=== PATIENT | male | born 1950 | race African-American/Black ===

== ENCOUNTER 2018-02-22 22:35 | Emergency (ER) | payer MEDICARE ==
[2018-02-23 01:14] LABS: HEMATOCRIT 38.5 % (37.9-51.0); HEMOGLOBIN 13.1 g/dL (13.5-17.0); MEAN CORPUSCULAR HEMOGLOBIN 30.7 pg (27.0-33.4); MEAN CORPUSCULAR VOLUME 90 fl (80-97); PLATELET COUNT 153 10^3/uL (150-450); RED BLOOD COUNT 4.26 10^6/uL (4.35-5.55); RED CELL DISTRIBUTION WIDTH 13.2 % (11.5-14.0); WHITE BLOOD COUNT 3.3 10^3/uL (4.0-10.5)
[2018-02-23 01:32] LABS: ANION GAP 5 (5-19); BLOOD UREA NITROGEN 16 mg/dL (7-20); CALCIUM 9.2 mg/dL (8.4-10.2); CARBON DIOXIDE 29 mmol/L (22-30); CHLORIDE 104 mmol/L (98-107); GLUCOSE 214 mg/dL (75-110); POTASSIUM 4.1 mmol/L (3.6-5.0); SODIUM 138.3 mmol/L (137-145)
--- NOTE | 2018-02-23 02:20 | ER Document Report ---
ED General - General Chief Complaint: Blood Pressure Problem Stated Complaint: BLOOD PRESSURE ISSUE Time Seen by Provider: 02/23/18 00:40 Notes: Patient is a 68-year-old male with a past medical history of hyperlipidemia and diabetes without insulin dependence who presents with intermittent lightheadedness and concerns about his blood pressure. The patient states that he has intermittently been feeling lightheaded throat the day today, checked his blood pressure and it read to be in the 200s systolic at home prompting him come to the emergency department. He does not normally have hypertension. He denies any headache, chest pain, focal weakness or numbness, confusion, fever or constitutional symptoms. He has not contacted his primary care doctor regarding today's concerns. He is uncertain of whether or not he has had similar symptoms in the past. TRAVEL OUTSIDE OF THE [place] IN LAST 30 DAYS: No - Related Data Allergies/Adverse Reactions: No Known Allergies Allergy (Unverified 05/20/12 23:10) Past Medical History - General Information source: Patient - Social History Smoking Status: Never Smoker Frequency of alcohol use: None Drug Abuse: None Lives with: Spouse/Significant other Family History: Reviewed & Not Pertinent Patient has suicidal ideation: No Patient has homicidal ideation: No - Past Medical History Cardiac Medical History: Reports: Hx Hypercholesterolemia Endocrine Medical History: Reports: Hx Diabetes Mellitus Type 2 Renal/ Medical History: Denies: Hx Peritoneal Dialysis Traumatic Medical History: Denies: Hx Fractures - Immunizations Hx Diphtheria, Pertussis, Tetanus Vaccination: No Review of Systems - Review of Systems Notes: Constitutional: Negative for fever. HENT: Negative for sore throat. Eyes: Negative for visual changes. Cardiovascular: Negative for chest pain. Respiratory: Negative for shortness of breath. Gastrointestinal: Negative for abdominal pain, vomiting or diarrhea. Genitourinary: Negative for dysuria. Musculoskeletal: Negative for back pain. Skin: Negative for rash. Neurological: Negative for headaches, weakness or numbness. 10 point ROS negative except as marked above and in HPI. Physical Exam - Vital signs Vitals: Temp Pulse Resp BP Pulse Ox 98.1 F 70 18 133/69 H 97 02/22/18 22:49 02/22/18 22:49 02/22/18 22:49 02/22/18 22:49 02/22/18 22:49 Interpretation: Normal Notes: PHYSICAL EXAMINATION: GENERAL: Well-appearing, well-nourished and in no acute distress. HEAD: Atraumatic, normocephalic. EYES: Pupils equal round and reactive to light, extraocular movements intact, sclera anicteric, conjunctiva are normal. ENT: nares patent, oropharynx clear without exudates. Moist mucous membranes. NECK: Normal range of motion, supple without lymphadenopathy LUNGS: Breath sounds clear to auscultation bilaterally and equal. No wheezes rales or rhonchi. HEART: Regular rate and rhythm without murmurs ABDOMEN: Soft, nontender, normoactive bowel sounds. No guarding, no rebound. No masses appreciated. EXTREMITIES: Normal range of motion, no pitting or edema. No cyanosis. NEUROLOGICAL: Face symmetric. Tongue protrudes midline. Extraocular motions intact. Pupils are 2 mm and equally reactive. Normal speech, normal gait. 5 out of 5 strength in both the distal and proximal upper and lower extremities bilaterally. Sensation is grossly intact throughout. Finger to nose testing normal. Pronator drift normal. PSYCH: Normal mood, normal affect. SKIN: Warm, Dry, normal turgor, no rashes or lesions noted. Course - Re-evaluation Re-evalutation: 02/23/18 04:43 Patient presents with complaints of intermittent lightheadedness, not present now. He has no focal neurologic deficits on examination. Has no complaints at all the time of my evaluation his main concern is his blood pressure reading at home which appears to have been in error given his normal blood pressure readings here in the emergency department. Laboratories unremarkable. EKG without any acute findings. I do not see indication for radiographic imaging. Clinical history and exam are not consistent with ACS, acute stroke, acute pulmonary embolus, occult infectious process, or any other life any other etiology. Have explained to the patient that the exact etiology of symptoms is uncertain diagnostic uncertainty does persist. At this time will discharge with return precautions and follow-up recommendations. Verbal discharge instructions given a the bedside and opportunity for questions given. Medication warnings reviewed. Patient is in agreement with this plan and has verbalized understanding of return precautions and the need for primary care follow-up in the next 24-72 hours. - Vital Signs Vital signs: Temp Pulse Resp BP Pulse Ox 97.6 F 59 L 16 152/78 H 100 02/23/18 02:54 02/23/18 02:54 02/23/18 02:54 02/23/18 02:54 02/23/18 02:54 - Laboratory Result Diagrams: 02/23/18 00:55 02/23/18 00:55 Laboratory results interpreted by me: 02/23/18 02/23/18 00:55 00:55 WBC 3.3 L RBC 4.26 L Hgb 13.1 L Glucose 214 H - EKG Interpretation by Me Additional EKG results interpreted by me: 02/23/18 04:44 Sinus rhythm. Rate 68. No ST elevations or depressions. QTC is 426. Discharge - Discharge Clinical Impression: Blood pressure check, Dizziness Condition: Good Disposition: HOME, SELF-CARE Additional Instructions: You were seen today for lightheadedness/dizziness. The exact cause of your symptoms is unclear but your workup here is reassuring without any concerning findings. Please follow closely with your primary care physician in the next 1- 3 days. Return if you pass out, have additional episodes of lightheadedness, develop weakness/numbness, have persistent vomiting, chest pain, shortness of breath or any other symptoms that are concerning to you
[2018-02-23 02:58] VITALS: BP 152/78
--- NOTE | 2018-02-23 12:38 | EKG REPORT ---
SEVERITY:- BORDERLINE ECG - SINUS RHYTHM LVH BY VOLTAGE : Confirmed by: Prachi Wellington MD 23-Feb-2018 12:37:39
== END 2018-02-23 02:57 | disposition home or self-care (01) ==
LOC: ER 22:35
DX: R03.0 Elevated blood-pressure reading, without diagnosis of hypertension (principal); R42 Dizziness and giddiness; E78.00 Pure hypercholesterolemia, unspecified; E11.9 Type 2 diabetes mellitus without complications
CPT/HCPCS: 36415; 80048; 84484; 85027; 93005; 93010; 99284

== ENCOUNTER 2018-09-15 10:32 | Emergency (ER) | payer MEDICARE ==
--- NOTE | 2018-09-15 11:11 | ER Document Report ---
ED Medical Screen (RME) - General Chief Complaint: Low Blood Sugar Stated Complaint: BLOOD SUGAR ISSUES Time Seen by Provider: 09/15/18 10:53 Mode of Arrival: Ambulatory Information source: Patient Notes: Patient is a 68-year-old male who presents emergency department with multiple complaints. Patient complains that this morning he woke up and felt shaky and drowsy. He checked his blood sugar and found it to be 34. He states when he rechecked it it was 74 and 72. Patient reports he drank some juice and ate a sandwich. On arrival patient's blood glucose is 286. He also complains of right lumbar back pain ongoing for the last 3 days. 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 Patient denies any urinary symptoms with this. He also reports left ear pain. He states he had a dental extraction done approximately 6 weeks ago and has had continued pain since then. Patient states he was seen by his primary care provider who prescribed him eardrops, he states he took all of them and the pain remains. Exam: Patient alert, oriented and answering all questions appropriately. Lung sounds are clear and equal bilaterally. I have greeted and performed a rapid initial assessment of this patient. A comprehensive ED assessment and evaluation of the patient, analysis of test results and completion of the medical decision making process will be conducted by additional ED providers. Dictation of this chart was performed using voice recognition software; therefore, there may be some unintended grammatical errors. TRAVEL OUTSIDE OF THE [place] IN LAST 30 DAYS: No - Related Data Allergies/Adverse Reactions: No Known Allergies Allergy (Unverified 05/20/12 23:10) Past Medical History - Past Medical History Cardiac Medical History: Reports: Hx Hypercholesterolemia Endocrine Medical History: Reports: Hx Diabetes Mellitus Type 2 Renal/ Medical History: Denies: Hx Peritoneal Dialysis Traumatic Medical History: Denies: Hx Fractures - Immunizations Hx Diphtheria, Pertussis, Tetanus Vaccination: No Physical Exam - Vital signs Vitals: Temp Pulse Resp BP Pulse Ox 98.0 F 93 16 157/77 H 97 09/15/18 10:44 09/15/18 10:44 09/15/18 10:44 09/15/18 10:44 09/15/18 10:44 Course - Vital Signs Vital signs: Temp Pulse Resp BP Pulse Ox 98.0 F 93 16 157/77 H 97 09/15/18 10:44 09/15/18 10:44 09/15/18 10:44 09/15/18 10:44 09/15/18 10:44 - Laboratory Laboratory results interpreted by me: 09/15/18 10:55 POC Glucose 286 H
[2018-09-15 12:01] LABS: ABSOLUTE LYMPHOCYTES (AUTO) 0.8 10^3/uL (0.5-4.7); ABSOLUTE MONOCYTES (AUTO) 0.2 10^3/uL (0.1-1.4); BASOPHILS % (AUTO) 0.3 % (0-2); EOSINOPHILS % (AUTO) 1.1 % (0-6); HEMATOCRIT 37.9 % (37.9-51.0); HEMOGLOBIN 12.9 g/dL (13.5-17.0); LYMPHOCYTES % (AUTO) 27.2 % (13-45); MEAN CORPUSCULAR HEMOGLOBIN 31.1 pg (27.0-33.4); MEAN CORPUSCULAR VOLUME 92 fl (80-97); MONOCYTES % (AUTO) 6.5 % (3-13); PLATELET COUNT 139 10^3/uL (150-450); RED BLOOD COUNT 4.14 10^6/uL (4.35-5.55); RED CELL DISTRIBUTION WIDTH 13.9 % (11.5-14.0); SEGMENTED NEUTROPHILS % (AUTO) 64.9 % (42-78); TOTAL CELLS COUNTED % (AUTO) 100 %; WHITE BLOOD COUNT 3.1 10^3/uL (4.0-10.5)
--- NOTE | 2018-09-15 12:04 | ER Document Report ---
ED General - General Chief Complaint: Low Blood Sugar Stated Complaint: BLOOD SUGAR ISSUES Time Seen by Provider: 09/15/18 10:53 Mode of Arrival: Ambulatory Notes: Patient is a 68-year-old male with multiple medical complaints. Patient states that 3 days he has had some nontraumatic right lower back pain without any aggravating or relieving factors other than worsening with movement. He denies any trauma, radiation down the leg, fevers, incontinence, or dysuria. History of similar presentation in the past with resolution on its own. No abdominal pain, cough, vomiting present. Patient also states that this morning he felt a little "shaky" and checked his blood sugar being 34. He states he rechecked it and was 74. Patient takes the medications as listed including an increase in his metformin 1 month ago from 500 twice a day to 1000 twice a day. Patient denies any chest pain, shortness of breath, vomiting, or fevers. Patient states that he often misses meals but did eat dinner last night and breakfast this morning. He does not take insulin. Patient's third and final complaint is that he had some fullness to his left ear that he had for 1 month. Patient states this was after dental extraction. Patient states he saw his primary care physician around 2 weeks ago and was told that he possibly had a left ear effusion and infection. He was provided eardrops which he just completed. Patient states that the ear fullness is improved. TRAVEL OUTSIDE OF THE [place] IN LAST 30 DAYS: No - Related Data Allergies/Adverse Reactions: No Known Allergies Allergy (Unverified 05/20/12 23:10) Past Medical History - General Information source: Patient - Social History Smoking Status: Never Smoker Frequency of alcohol use: None Drug Abuse: None Family History: Reviewed & Not Pertinent Patient has suicidal ideation: No Patient has homicidal ideation: No - Past Medical History Cardiac Medical History: Reports: Hx Hypercholesterolemia, Hx Hypertension Endocrine Medical History: Reports: Hx Diabetes Mellitus Type 2 Renal/ Medical History: Denies: Hx Peritoneal Dialysis Traumatic Medical History: Denies: Hx Fractures - Immunizations Hx Diphtheria, Pertussis, Tetanus Vaccination: No Review of Systems - Review of Systems Constitutional: denies: Fever EENT: denies: Eye discharge, Nose discharge Cardiovascular: denies: Chest pain, Palpitations Respiratory: denies: Short of breath Gastrointestinal: denies: Vomiting Genitourinary: denies: Dysuria Musculoskeletal: denies: Leg swelling Skin: Other - no hives. denies: Rash Neurological/Psychological: Other - no slurred speech -: Yes All other systems reviewed and negative Physical Exam - Vital signs Vitals: Temp Pulse Resp BP Pulse Ox 98.0 F 93 16 157/77 H 97 09/15/18 10:44 09/15/18 10:44 09/15/18 10:44 09/15/18 10:44 09/15/18 10:44 Notes: Reviewed vital signs and nursing note as charted by RN. CONSTITUTIONAL: Alert and oriented and responds appropriately to questions. Wel l-appearing; well-nourished HEAD: Normocephalic; atraumatic EYES: PERRL; full extraocular range of motion ENT: Normal nose; no rhinorrhea; patient has what appears to be a left ear effusion with no obvious signs of otitis media, otitis externa, with a normal nontender nonswollen mastoid region; moist mucous membranes; pharynx without lesions noted NECK: Supple without meningismus; non-tender; no cervical lymphadenopathy, no masses CARD: Regular rate and rhythm; no murmurs; symmetric distal pulses RESP: Normal chest excursion without splinting or tachypnea; breath sounds clear and equal bilaterally; no wheezes, no rhonchi, no rales ABD/GI: Normal bowel sounds; non-distended; soft, non-tender; no palpable organomegaly or masses BACK: The back appears normal and is non-tender to palpation along the midline with some right-sided paraspinal tenderness without swelling or erythema noted EXT: Normal ROM in all joints; non-tender to palpation; no edema SKIN: No acute lesions noted NEURO: CN 2-12 intact; 5/5 bilateral upper and lower extremity strength with sensation intact to light touch. Normal 2+ patellar reflexes bilaterally PSYCH: The patient's mood and manner are appropriate. Grooming and personal hygiene are appropriate. Course - Re-evaluation Re-evalutation: 09/15/18 12:04 Given the above history and physical examination we will order basic labs and order every hour Accu-Chek. Given the patient's lower back pain without any abdominal tenderness, abdominal bruits or masses, I do believe a AAA to be unlikely. Given the lack of any midline erythema, induration, fluctuance, or fever, I do believe an infection to be unlikely. Given the normal strength of bilateral lower extremities with 2+ patellar reflexes, I believe cord compression to be unlikely. Given the lack of any flank pain or dysuria, I do believe a kidney stone to be unlikely. Given the patient's ear infection that has been improved, with the exam as above, I do not believe any acute treatment is needed at this moment. If the workup is unremarkable and the patient's blood sugar continues to remain stable, I will most likely have the patient revert back to the 500 mg twice a day of metformin until the patient is able to see and be evaluated by the primary care physician. 09/15/18 16:00 Labs, imaging, and repeat Accu-Cheks as recorded. No change in exam. Patient still looks excellent. Patient will be discharged home with strict return precautions with a change in his glucose medications until follow-up. I will also provide orthopedic follow-up instructions regarding his lower back. - Vital Signs Vital signs: Temp Pulse Resp BP Pulse Ox 98.0 F 93 17 160/86 H 99 09/15/18 10:44 09/15/18 10:44 09/15/18 14:01 09/15/18 14:01 09/15/18 14:01 - Laboratory Result Diagrams: 09/15/18 11:50 09/15/18 11:50 Laboratory results interpreted by me: 09/15/18 09/15/18 09/15/18 10:55 11:39 11:50 WBC 3.1 L RBC 4.14 L Hgb 12.9 L Plt Count 139 L Glucose POC Glucose 286 H Total Bilirubin Total Protein Urine Glucose (UA) 50 H 09/15/18 09/15/18 09/15/18 11:50 11:58 12:57 WBC RBC Hgb Plt Count Glucose 255 H POC Glucose 237 H 195 H Total Bilirubin 1.4 H Total Protein 5.9 L Urine Glucose (UA) 09/15/18 09/15/18 14:15 14:57 WBC RBC Hgb Plt Count Glucose POC Glucose 168 H 151 H Total Bilirubin Total Protein Urine Glucose (UA) Discharge - Discharge Clinical Impression: Hypoglycemia Low back strain Qualifiers: Encounter type: initial encounter Qualified Code(s): S39.012A - Strain of muscl e, fascia and tendon of lower back, initial encounter Condition: Good Disposition: HOME, SELF-CARE Additional Instructions: Come back immediately for any change in mental status, chest pain, fevers, vomiting, abdominal pain, increased low back pain, fevers, incontinence, weakness or numbness. Please follow-up with your primary care physician and orthopedics as we have discussed. Please change your metformin dosing from 1000 mg in the morning and at night to 1000 mg in the morning and 500 mg at night until being seen and evaluated by the primary doctor. Please do not miss any meals as we have discussed. Referrals: PACO MERINO MD [ACTIVE STAFF] - Follow up as needed
[2018-09-15 12:12] LABS: APPEARANCE,URINE CLEAR; BILIRUBIN,URINE NEGATIVE (NEGATIVE); COLOR,URINE YELLOW; GLUCOSE, URINE 50 mg/dL (NEGATIVE); KETONES,URINE NEGATIVE (NEGATIVE); LEUKOCYTE ESTERASE,URINE NEGATIVE (NEGATIVE); NITRITE,URINE NEGATIVE (NEGATIVE); PROTEIN,URINE NEGATIVE (NEGATIVE); URINE SPECIFIC GRAVITY 1.013; UROBILINOGEN,URINE NEGATIVE mg/dL (<2.0)
[2018-09-15 12:21] LABS: ALANINE AMINOTRANSFERASE 28 U/L (21-72); ALBUMIN 3.7 g/dL (3.5-5.0); ALKALINE PHOSPHATASE 49 U/L (38-126); ANION GAP 7 (5-19); ASPARTATE AMINO TRANSFERASE 21 U/L (17-59); BILIRUBIN,DIRECT 0.2 mg/dL (0.0-0.4); BILIRUBIN,TOTAL 1.4 mg/dL (0.2-1.3); BLOOD UREA NITROGEN 12 mg/dL (7-20); CARBON DIOXIDE 30 mmol/L (22-30); CHLORIDE 103 mmol/L (98-107); GLUCOSE 255 mg/dL (75-110); POTASSIUM 4.2 mmol/L (3.6-5.0); SODIUM 140.1 mmol/L (137-145); TOTAL PROTEIN 5.9 g/dL (6.3-8.2)
--- NOTE | 2018-09-15 12:40 | RADIOLOGY REPORT (SQ) ---
EXAM DESCRIPTION: L SPINE WHOLE COMPLETED DATE/TIME: 09/15/2018 12:23 pm REASON FOR STUDY: 20; right paraspinal pain COMPARISON: None. NUMBER OF VIEWS: Five views including obliques. TECHNIQUE: AP, lateral, oblique, and sacral radiographic images acquired of the lumbar spine. LIMITATIONS: None. FINDINGS: MINERALIZATION: Normal. SEGMENTATION: Normal. No transitional anatomy. ALIGNMENT: Very slight convex right scoliotic curve. VERTEBRAE: Maintained height. No fracture or worrisome bone lesion. DISCS: Multilevel disc space narrowing with osteophytes. POSTERIOR ELEMENTS: Pedicles and facets are intact. No pars defect or posterior arch defects. Facet arthropathy is present. HARDWARE: None in the spine. PARASPINAL SOFT TISSUES: Normal. PELVIS: Intact as visualized. No fractures or worrisome bone lesions. SI joints intact. OTHER: No other significant finding. IMPRESSION: SPONDYLOSIS WITHOUT BONE LESION OR FRACTURE. TECHNICAL DOCUMENTATION: JOB ID: [id number] [employer]- All Rights Reserved Reading location - IP/workstation name: [email or web address]
[2018-09-15 16:17] VITALS: BP 170/87
== END 2018-09-15 16:17 | disposition home or self-care (01) ==
LOC: ER 10:32
DX: E11.649 Type 2 diabetes mellitus with hypoglycemia without coma (principal); Z79.4 Long term (current) use of insulin; S39.012A Strain of muscle, fascia and tendon of lower back, initial encounter; X58.XXXA Exposure to other specified factors, initial encounter; I10 Essential (primary) hypertension
CPT/HCPCS: 36415; 72110; 80053; 81001; 82962; 85025; 87086; 99283

== ENCOUNTER 2019-05-10 16:41 | Emergency (ER) | payer MEDICARE ==
--- NOTE | 2019-05-10 16:58 | ER Document Report ---
ED Medical Screen (RME) - General Chief Complaint: Low Blood Sugar Stated Complaint: LOW BLOOD SUGAR Time Seen by Provider: 05/10/19 16:49 Notes: Patient is a 69-year-old male with a history of type 2 diabetes, high cholesterol and hypertension who presents to the emergency department with a chief complaint of low blood sugar. Patient reports prior to arrival he felt really bad and weak all over. Patient reports he was sweating and felt like his blood sugar was low. Patient reports he did check his blood sugar and it was in the 40s. Patient reports he does take glimepiride although he is unsure of the dosage once daily as well as metformin 1000 mg twice a day. Patient reports he did have both of these medications around 10 AM. Patient reports he did have breakfast but did not have lunch. Patient denies any recent change in his diabetes medication dosages. Patient reports at home he did have some orange juice and a boiled egg prior to arrival. TRAVEL OUTSIDE OF THE [place] IN LAST 30 DAYS: No - Related Data Allergies/Adverse Reactions: No Known Allergies Allergy (Verified 05/10/19 16:55) Past Medical History - Past Medical History Cardiac Medical History: Reports: Hx Hypercholesterolemia, Hx Hypertension Endocrine Medical History: Reports: Hx Diabetes Mellitus Type 2 Renal/ Medical History: Denies: Hx Peritoneal Dialysis Traumatic Medical History: Denies: Hx Fractures - Immunizations Hx Diphtheria, Pertussis, Tetanus Vaccination: No Physical Exam - Vital signs Vitals: Temp Pulse BP Pulse Ox 97.6 F 82 147/77 H 98 05/10/19 16:47 05/10/19 16:47 05/10/19 16:47 05/10/19 16:47 - Respiratory Respiratory status: No respiratory distress - Skin Skin Temperature: Warm Skin Moisture: Dry Course - Re-evaluation Re-evalutation: 05/10/19 16:57 Blood sugar in triage is 87. Have provided the patient with juice and crackers. Have ordered hourly Accu-Chek and basic labs. We will continue to monitor. Patient to inform staff if he starts to feel symptomatic again. I have greeted and performed a rapid initial assessment of this patient. A comprehensive ED assessment and evaluation of the patient, analysis of test results and completion of the medical decision making process will be conducted by additional ED providers. - Vital Signs Vital signs: Temp Pulse Resp BP Pulse Ox 97.6 F 82 147/77 H 98 05/10/19 16:47 05/10/19 16:47 05/10/19 16:47 05/10/19 16:47
[2019-05-10 17:27] LABS: ABSOLUTE EOSINOPHILS # (AUTO) 0.1 10^3/uL (0.0-0.6); ABSOLUTE MONOCYTES (AUTO) 0.3 10^3/uL (0.1-1.4); ABSOLUTE NEUT (AUTO) 2.5 10^3/uL (1.7-8.2); BASOPHILS % (AUTO) 0.4 % (0-2); EOSINOPHILS % (AUTO) 2.1 % (0-6); HEMOGLOBIN 13.7 g/dL (13.5-17.0); MEAN CORPUSCULAR HEMOGLOBIN 31.6 pg (27.0-33.4); MEAN CORPUSCULAR HGB CONC 33.4 g/dL (32.0-36.0); MEAN CORPUSCULAR VOLUME 95 fl (80-97); MONOCYTES % (AUTO) 6.4 % (3-13); PLATELET COUNT 150 10^3/uL (150-450); RED BLOOD COUNT 4.33 10^6/uL (4.35-5.55); RED CELL DISTRIBUTION WIDTH 13.4 % (11.5-14.0); SEGMENTED NEUTROPHILS % (AUTO) 50.1 % (42-78); TOTAL CELLS COUNTED % (AUTO) 100 %
[2019-05-10 17:42] LABS: ALBUMIN 4.6 g/dL (3.5-5.0); ALKALINE PHOSPHATASE 55 U/L (38-126); ANION GAP 12 (5-19); ASPARTATE AMINO TRANSFERASE 23 U/L (17-59); BILIRUBIN,DIRECT 0.1 mg/dL (0.0-0.4); BILIRUBIN,TOTAL 0.8 mg/dL (0.2-1.3); BLOOD UREA NITROGEN 12 mg/dL (7-20); CALCIUM 9.5 mg/dL (8.4-10.2); CARBON DIOXIDE 28 mmol/L (22-30); CHLORIDE 100 mmol/L (98-107); GLUCOSE 124 mg/dL (75-110); POTASSIUM 4.5 mmol/L (3.6-5.0); TOTAL PROTEIN 6.9 g/dL (6.3-8.2)
[2019-05-10 18:33] LABS: APPEARANCE,URINE CLEAR; BILIRUBIN,URINE NEGATIVE (NEGATIVE); COLOR,URINE YELLOW; GLUCOSE, URINE 50 mg/dL (NEGATIVE); KETONES,URINE NEGATIVE (NEGATIVE); LEUKOCYTE ESTERASE,URINE NEGATIVE (NEGATIVE); NITRITE,URINE NEGATIVE (NEGATIVE); PROTEIN,URINE NEGATIVE (NEGATIVE); UROBILINOGEN,URINE NEGATIVE mg/dL (<2.0)
--- NOTE | 2019-05-10 18:41 | ER Document Report ---
ED General - General Chief Complaint: Low Blood Sugar Stated Complaint: LOW BLOOD SUGAR Time Seen by Provider: 05/10/19 16:49 Primary Care Provider: ERINN HUNT DO [Primary Care Provider] - Follow up in 3-5 days Mode of Arrival: Ambulatory Information source: Patient, Relative Notes: This 69-year-old male presents emergency department with reports that he is a diabetic. He reports he takes 2000 metformin a day plus glipizide. Reports that his blood glucose dropped today. Reports that around 40s. He felt weak just felt bad. Reports he did eat breakfast but did not eat lunch. After the glucose dropped he did eat a boiled egg and some orange juice he is feeling much better now. Reports he has not been eating that much lately because he is not really hungry.. Denies fever vomiting diarrhea. Denies pain with void. TRAVEL OUTSIDE OF THE [place] IN LAST 30 DAYS: No - Related Data Allergies/Adverse Reactions: No Known Allergies Allergy (Verified 05/10/19 16:55) Past Medical History - General Information source: Patient, Relative - daughter - Social History Smoking Status: Never Smoker Chew tobacco use (# tins/day): No Frequency of alcohol use: None Drug Abuse: None Lives with: Alone Family History: Reviewed & Not Pertinent Patient has suicidal ideation: No Patient has homicidal ideation: No - Past Medical History Cardiac Medical History: Reports: Hx Hypercholesterolemia, Hx Hypertension Endocrine Medical History: Reports: Hx Diabetes Mellitus Type 2 Renal/ Medical History: Denies: Hx Peritoneal Dialysis Traumatic Medical History: Denies: Hx Fractures Surgical Hx: Negative - Immunizations Hx Diphtheria, Pertussis, Tetanus Vaccination: No Review of Systems - Review of Systems Notes: Review HPI for review of systems., All other systems negative Physical Exam - Vital signs Vitals: Temp Pulse BP Pulse Ox 97.6 F 82 147/77 H 98 05/10/19 16:47 05/10/19 16:47 05/10/19 16:47 05/10/19 16:47 - General General appearance: Appears well, Alert In distress: None - HEENT Head: Normocephalic Eyes: Normal Conjunctiva: Normal Extraocular movements intact: Yes Neck: Normal, Supple. No: Lymphadenopathy - Respiratory Respiratory status: No respiratory distress Chest status: Nontender Breath sounds: Normal Chest palpation: Normal - Cardiovascular Rhythm: Regular Heart sounds: Normal auscultation Murmur: No - Abdominal Inspection: Normal Distension: No distension Tenderness: Nontender - Back Back: No: CVA tenderness - Extremities General upper extremity: Normal ROM, Normal strength General lower extremity: Normal ROM, Normal strength, Normal weight bearing - Neurological Neuro grossly intact: Yes Cognition: Normal Orientation: AAOx4 Lita Coma Scale Eye Opening: Spontaneous Lita Coma Scale Verbal: Oriented Lita Coma Scale Motor: Obeys Commands Suring Coma Scale Total: 15 Speech: Normal - Psychological Associated symptoms: Normal affect, Normal mood - Skin Skin Temperature: Warm Skin Moisture: Dry Skin Color: Normal Course - Re-evaluation Re-evalutation: 05/10/19 18:41 This 60-year-old male presents emergency department with reports that his blood sugar was low today. Reports he did not eat lunch, he took his blood glucose because he felt weak and it was in his 40s. He did eat a boiled egg and some orange juice and came to the emergency department. He reports he saw his provider 2 weeks ago and his A1c had gone from 10-7.. He has been taking the same diabetes medication for many years. He reports he is just not eating that much anymore. He denies fever nausea vomiting diarrhea. Denies pain with void. Reports only thing different is he is just not eating that much because he does not feel like it. Reports he is not hungry. Labs unremarkable Accu-Chek has increased to 124. Patient was given juice and crackers. He was instructed on the importance of follow-up with his provider to discuss his decreased appetite and the current medications he is on. He was also instructed on the importance of eating 3 meals a day. He verbalized understanding to all instructions. 05/10/19 17:10 05/10/19 17:10 MCV 95 fl (80-97) 05/10/19 17:10 MCH 31.6 pg (27.0-33.4) 05/10/19 17:10 MCHC 33.4 g/dL (32.0-36.0) 05/10/19 17:10 RDW 13.4 % (11.5-14.0) 05/10/19 17:10 Seg Neutrophils % 50.1 % (42-78) 05/10/19 17:10 Chloride 100 mmol/L (98-107) 05/10/19 17:10 Carbon Dioxide 28 mmol/L (22-30) 05/10/19 17:10 Anion Gap 12 (5-19) 05/10/19 17:10 Est GFR ( Amer) > 60 (>60) 05/10/19 17:10 Glucose 124 mg/dL (75-110) H 05/10/19 17:10 Calcium 9.5 mg/dL (8.4-10.2) 05/10/19 17:10 Total Bilirubin 0.8 mg/dL (0.2-1.3) 05/10/19 17:10 AST 23 U/L (17-59) 05/10/19 17:10 Alkaline Phosphatase 55 U/L (38-126) 05/10/19 17:10 Total Protein 6.9 g/dL (6.3-8.2) 05/10/19 17:10 Albumin 4.6 g/dL (3.5-5.0) 05/10/19 17:10 Urine Color YELLOW 05/10/19 18:21 Urine Appearance CLEAR 05/10/19 18:21 Urine pH 5.0 (5.0-9.0) 05/10/19 18:21 Ur Specific Finley 1.010 05/10/19 18:21 Urine Protein NEGATIVE mg/dL (NEGATIVE) 05/10/19 18:21 Urine Glucose (UA) 50 mg/dL (NEGATIVE) H 05/10/19 18:21 Urine Ketones NEGATIVE mg/dL (NEGATIVE) 05/10/19 18:21 Urine Blood NEGATIVE (NEGATIVE) 05/10/19 18:21 Urine Nitrite NEGATIVE (NEGATIVE) 05/10/19 18:21 Ur Leukocyte Esterase NEGATIVE (NEGATIVE) 05/10/19 18:21 Urine WBC (Auto) 1 /HPF 05/10/19 18:21 Urine RBC (Auto) 0 /HPF 05/10/19 18:21 05/10/19 19:03 Dictation of this chart was performed using voice recognition software; therefore, there may be some unintended grammatical errors. - Vital Signs Vital signs: Temp Pulse Resp BP Pulse Ox 97.6 F 82 147/77 H 98 05/10/19 16:55 05/10/19 16:47 05/10/19 16:47 05/10/19 16:55 - Laboratory Result Diagrams: 05/10/19 17:10 12/07/19 17:10 Laboratory results interpreted by me: 05/10/19 05/10/19 05/10/19 17:10 17:10 18:21 RBC 4.33 L Glucose 124 H Urine Glucose (UA) 50 H Discharge - Discharge Clinical Impression: Low blood sugar in diabetes Condition: Stable Disposition: HOME, SELF-CARE Additional Instructions: *You have been evaluated for low blood sugar *Monitor glucose *Ensure you are eating at least 3 meals a day *Follow up with your primary care provider Sunday *Return to ED for worsening condition, changes, needs *Return to ED if not better in 24 hours Referrals: ERINN HUNT DO [Primary Care Provider] - Follow up in 3-5 days
[2019-05-10 19:03] VITALS: BP 145/77
== END 2019-05-10 19:03 | disposition home or self-care (01) ==
LOC: ER 16:41
DX: E11.649 Type 2 diabetes mellitus with hypoglycemia without coma (principal); I10 Essential (primary) hypertension
CPT/HCPCS: 36415; 80053; 81001; 82962; 85025; 99283